=== PATIENT | female | born 1965 | race Caucasian/White ===

== ENCOUNTER 2020-01-09 12:22 | Outpatient (REF) | payer MEDICAID, SELFPAY ==
--- NOTE | 2020-01-09 10:00 | PAPFT_PTH ---
PATIENT: ART CORDON LOC: [facility] U#:[id number] AGE/SX: 54/F ROOM: RE01/09/[address]: Sakina Pride NP : 1965 BED: DIS: 01/09/2020 SPEC #: [id number] RECD: 01/09/20 12:58 STATUS: MARU REQ #: [id number] BETI: 01/09/20 10:[address]: Milly Mendoza DEPT: [facility] Cytology RECD BY: Jannie Ozuna ENTERED: 01/09/20 12:59 SP TYPE: PAPFT AMAURY DR: Unknown,Unknown Tissues: 1 - CX/ENDOCX FOR PAP SMEARS Procedures: PAP THIN PREP/[facility] Screening Comments: [id number]
== END 2020-01-09 12:42 ==
LOC: LBN 12:22
PROVIDERS: Visit Provider Nurse Practitioner Women's Health
DX: Z12.4 Encounter for screening for malignant neoplasm of cervix (principal)
CPT/HCPCS: 88142

== ENCOUNTER 2020-02-13 01:31 | Outpatient (CLI) | payer MEDICAID, SELFPAY ==
--- NOTE | 2020-02-13 08:15 | DI.US_ITS ---
EXAM: US PELVIS TRANSVAGINAL CLINICAL HISTORY: pelvic pain, hx adhesions, R10.2. TECHNIQUE: Transabdominal and transvaginal pelvic ultrasound was performed using standard protocol. COMPARISON: No exams were available for comparison FINDINGS: KIDNEYS: Kidneys are symmetric in size. No evidence of renal calculi. No evidence of hydronephrosis. No renal mass or cyst identified. UTERUS: Position: Anteverted. Size: 6.1 long by 2.2 AP by 3.3 transverse cm Endometrium: 0.3 cm. Normal for patient's menstrual status. There is a small amount of fluid within t he endometrial canal. Myometrium: Unremarkable. Cervix: Unremarkable. OVARIES: Right: 2.1 x 1.4 x 1.2 cm Cyst or mass: None. Left: 2.2 x 0.8 x 1.1 cm Cyst or mass: None. DOPPLER: Color: Symmetric and uniform flow to both ovaries. No hyperemia. CUL-DE-SAC: Free fluid: None. Other: None. IMPRESSION: 1. Normal sonographic appearance of the kidneys. 2. Normal-appearing uterus with endometrial stripe within normal limits. 3. Unremarkable bilateral ovaries. DATA REPOSITORY:
== END 2020-02-13 01:51 ==
PROVIDERS: PCP Family Medicine; Visit Provider Nurse Practitioner Women's Health
DX: R10.2 Pelvic and perineal pain (principal)
CPT/HCPCS: 76830; 76856